=== PATIENT | female | born 1995 | race Caucasian/White ===

== ENCOUNTER 2022-07-06 20:13 | Emergency (ER) | payer OTHER ==
[~2022-07-06] VITALS: Ht 152.4 cm; Wt 84.4 kg
[2022-07-06 20:20] VITALS: BP 140/90
--- NOTE | 2022-07-06 21:00 | NUR ---
PT TO BED #11
--- NOTE | 2022-07-06 21:04 | NUR ---
RECEIVED IN BED 11 WITH C/O LOWER ABD PAIN, PAINFUL URINATION, FOR 2 DAYS, AND HIV TESTING
[2022-07-06] MEDS ORDERED: CIPR7.5S OT (21:27)
[2022-07-06 21:30] VITALS: BP 140/90
--- NOTE | 2022-07-06 21:30 | NUR ---
Patient discharged with v/s stable. Written and verbal after care instructions given and explained. Patient alert, oriented and verbalized understanding of instructions. Ambulatory with steady gait. All questions addressed prior to discharge. ID band removed. Patient advised to follow up with PMD. Rx of CIPRODEX given. Patient educated on indication of medication including possible reaction and side effects. Opportunity to ask questions provided and answered.
== END 2022-07-06 21:30 | disposition home or self-care (01) ==
LOC: MED 20:13
DX: H60.92 Unspecified otitis externa, left ear (principal); Z90.49 Acquired absence of other specified parts of digestive tract; Z98.890 Other specified postprocedural states
CPT/HCPCS: 99283